=== PATIENT | female | born 1960 | race Caucasian/White ===

== ENCOUNTER → 2018-08-15 | Outpatient (CLI) | payer OTHER ==
[~2018-08-15] MED LIST: BENZ200C15 PO
== END ==
LOC: LAB 15:46
PROVIDERS: ATTEND Nurse Practitioner Primary Care
DX: Z11.59 Encounter for screening for other viral diseases (principal)
CPT/HCPCS: 36415; 86803

== ENCOUNTER 2018-09-05 20:27 | Emergency (ER) | payer OTHER ==
--- NOTE | 2018-09-05 20:31 | ER Report ---
History and Physical Time Seen By MD: 20:31 HPI/ROS CHIEF COMPLAINT: Chest pain HISTORY OF PRESENT ILLNESS: Patient is a 57-year-old female here with complaints of midsternal chest pain which started approximately 45 minutes prior to arrival. Patient was afebrile, hemodynamically stable at time of evaluation. EKG showed no acute ischemic changes or arrhythmias. Denies prior history of coronary artery disease. REVIEW OF SYSTEMS: Constitutional: No fever, no chills. Eyes: No discharge. ENT: No sore throat. Cardiovascular: + Midsternal chest pain, no palpitations. Respiratory: No cough, no shortness of breath. Gastrointestinal: No abdominal pain, no vomiting. Genitourinary: No hematuria. Musculoskeletal: No back pain. Skin: No rashes. Neurological: No headache. Allergies: Coded Allergies: No Known Drug Allergies (Unverified , 08/15/18) Home Meds Active Scripts Benzonatate (BENZONATATE) 200 Mg Capsule, 1 CAP PO TID PRN for COUGH, #15 CAP 0 Refills Prov:JUAN DIEGO MELÉNDEZ DNP, [employer] 08/15/18 Smoking Status: Current: Every Day Smoker Constitutional Vital Sign - Last 24 Hours 09/05/18 09/05/18 09/05/18 09/05/18 20:30 20:30 20:40 20:57 Temp 97.2 Pulse 93 90 Resp 20 20 B/P (MAP) 156/92 156/92 (113) Pulse Ox 92 91 O2 Delivery Room Air O2 Flow Rate 1.0 09/05/18 09/05/18 09/05/18 09/05/18 21:00 21:15 21:20 21:30 Pulse 75 Resp 11 B/P (MAP) 126/85 (99) 120/73 (89) 127/77 (94) Pulse Ox 96 09/05/18 09/05/18 09/05/18 09/05/18 21:45 21:50 22:00 22:15 Pulse 71 Resp 10 B/P (MAP) 121/82 (95) 137/86 (103) 138/86 (103) Pulse Ox 97 09/05/18 09/05/18 09/05/18 09/05/18 22:20 22:30 22:45 22:50 Pulse 78 65 Resp 21 7 B/P (MAP) 129/103 (112) 131/83 (99) Pulse Ox 98 95 09/05/18 09/05/18 23:00 23:15 B/P (MAP) 138/92 (107) 139/79 (99) Intake and Output 09/05/18 09/05/18 09/06/18 14:59 22:59 06:59 Intake Total 1000 ml Balance 1000 ml Physical Exam General Appearance: The patient is alert, has no immediate need for airway protection and no signs of toxicity. No acute distress Eyes: Pupils equal and round no pallor or injection. ENT, Mouth: Mucous membranes are moist. Respiratory: There are no retractions, lungs are clear to auscultation. Cardiovascular: Regular rate and rhythm. Gastrointestinal: Abdomen is soft and non tender, no masses, bowel sounds normal. Neurological: No focal neurological findings Skin: Warm and dry, no rashes. Musculoskeletal: Neck is supple non tender. Extremities are nontender, nonswollen and have full range of motion. DIFFERENTIAL DIAGNOSIS: After history and physical exam differential diagnosis was considered for chest pain including but not limited to myocardial ischemia, pericarditis pulmonary embolus, chest wall pain, pleural inflammation and pulmonary infectious causes. Medical Decision Making Data Points Result Diagram: 09/05/18203509/05/182035 Laboratory Hematology Test 09/05/18 20:36 09/05/18 20:40 09/05/18 22:48 Red Blood Count 4.81 M/uL (4.17-5.56) Mean Corpuscular Volume 94.2 fL (80.0-96.0) Mean Corpuscular Hemoglobin 32.4 pg (26.0-33.0) Mean Corpuscular Hemoglobin Concent 34.4 g/dL (32.0-36.0) Red Cell Distribution Width 13.1 % (11.5-14.5) Mean Platelet Volume 8.0 fL (7.2-11.1) Neutrophils (%) (Auto) 60.1 % (39.4-72.5) Lymphocytes (%) (Auto) 30.2 % (17.6-49.6) Monocytes (%) (Auto) 6.0 % (4.1-12.4) Eosinophils (%) (Auto) 3.1 % (0.4-6.7) Basophils (%) (Auto) 0.6 % (0.3-1.4) Nucleated RBC Relative Count (auto) 0.0 /100WBC Neutrophils # (Auto) 4.7 K/uL (2.0-7.4) Lymphocytes # (Auto) 2.4 K/uL (1.3-3.6) Monocytes # (Auto) 0.5 K/uL (0.3-1.0) Eosinophils # (Auto) 0.2 K/uL (0.0-0.5) Basophils # (Auto) 0.0 K/uL (0.0-0.1) Nucleated RBC Absolute Count (auto) 0.00 K/uL Prothrombin Time 12.4 seconds (12.0-14.4) Prothromb Time International Ratio 0.93 Activated Partial Thromboplast Time 28 seconds (23-35) Sodium Level 141 mmol/L (137-145) Potassium Level 3.5 mmol/L (3.5-5.0) Chloride Level 107 mmol/L (98-107) Carbon Dioxide Level 26 mmol/L (22-31) Blood Urea Nitrogen 16 mg/dl (7-18) Creatinine 0.90 mg/dl (0.52-1.04) Glomerular Filtration Rate Calc > 60.0 Random Glucose 111 mg/dl (75-110) Calcium Level 8.8 mg/dl (8.4-10.2) Total Bilirubin 0.2 mg/dl (0.2-1.3) Aspartate Amino Transf (AST/SGOT) 26 U/L (0-35) Alanine Aminotransferase (ALT/SGPT) 24 U/L (0-56) Alkaline Phosphatase 74 U/L (0-126) B-Type Natriuretic Peptide < 5 pg/ml (0-100) Total Protein 6.1 g/dl (6.3-8.2) Albumin 3.7 g/dl (3.5-5.0) Influenza Virus Type A (PCR) Negative (NEGATIVE) Influenza Virus Type B (PCR) Negative (NEGATIVE) Troponin I < 0.012 ng/ml Chemistry Test 09/05/18 20:36 09/05/18 20:40 09/05/18 22:48 White Blood Count 7.8 k/uL (4.5-11.0) Red Blood Count 4.81 M/uL (4.17-5.56) Hemoglobin 15.6 g/dL (12.0-16.0) Hematocrit 45.3 % (34.0-47.0) Mean Corpuscular Volume 94.2 fL (80.0-96.0) Mean Corpuscular Hemoglobin 32.4 pg (26.0-33.0) Mean Corpuscular Hemoglobin Concent 34.4 g/dL (32.0-36.0) Red Cell Distribution Width 13.1 % (11.5-14.5) Platelet Count 336 K/uL (150-450) Mean Platelet Volume 8.0 fL (7.2-11.1) Neutrophils (%) (Auto) 60.1 % (39.4-72.5) Lymphocytes (%) (Auto) 30.2 % (17.6-49.6) Monocytes (%) (Auto) 6.0 % (4.1-12.4) Eosinophils (%) (Auto) 3.1 % (0.4-6.7) Basophils (%) (Auto) 0.6 % (0.3-1.4) Nucleated RBC Relative Count (auto) 0.0 /100WBC Neutrophils # (Auto) 4.7 K/uL (2.0-7.4) Lymphocytes # (Auto) 2.4 K/uL (1.3-3.6) Monocytes # (Auto) 0.5 K/uL (0.3-1.0) Eosinophils # (Auto) 0.2 K/uL (0.0-0.5) Basophils # (Auto) 0.0 K/uL (0.0-0.1) Nucleated RBC Absolute Count (auto) 0.00 K/uL Prothrombin Time 12.4 seconds (12.0-14.4) Prothromb Time International Ratio 0.93 Activated Partial Thromboplast Time 28 seconds (23-35) Glomerular Filtration Rate Calc > 60.0 Calcium Level 8.8 mg/dl (8.4-10.2) Total Bilirubin 0.2 mg/dl (0.2-1.3) Aspartate Amino Transf (AST/SGOT) 26 U/L (0-35) Alanine Aminotransferase (ALT/SGPT) 24 U/L (0-56) Alkaline Phosphatase 74 U/L (0-126) B-Type Natriuretic Peptide < 5 pg/ml (0-100) Total Protein 6.1 g/dl (6.3-8.2) Albumin 3.7 g/dl (3.5-5.0) Influenza Virus Type A (PCR) Negative (NEGATIVE) Influenza Virus Type B (PCR) Negative (NEGATIVE) Troponin I < 0.012 ng/ml Coagulation Test 09/05/18 20:36 Prothrombin Time 12.4 seconds Prothromb Time International Ratio 0.93 Activated Partial Thromboplast Time 28 seconds EKG/Imaging EKG Interpretation PATIENT NAME: AMA CALVIN : [id number] MR: [id number] V: [id number] EXAM DATE: ORDERING PHYSICIAN: ASHLY PROCTOR TECHNOLOGIST: GIORGIW Test Reason : CHEST PAIN Blood Pressure : / mmHG Vent. Rate : 089 BPM Atrial Rate : 089 BPM P-R Int : 164 ms QRS Dur : 086 ms QT Int : 370 ms P-R-T Axes : 077 063 071 degrees QTc Int : 450 ms Normal sinus rhythm Normal ECG No previous ECGs available Confirmed by Jered Mobley ([id number]) on 09/05/2018 10:20:47 PM Referred By: Confirmed By:Jered [facility] PATIENT NAME: Ama Calvin : 1960 MR: [id number] V: [id number] EXAM DATE: [id number] ORDERING PHYSICIAN: ASHLY PROCTOR TECHNOLOGIST: Location: [facility] Patient: Ama Calvin : 1960 Visit/Account:[id number] Date of Sevice: 09/05/2018 CHEST SINGLE AP 09/05/2018 20:36 hours. HISTORY: Chest pain. COMPARISON: None. TECHNIQUE: Portable AP view of the chest. FINDINGS: Tubes/lines/hardware: There are external chest leads. Pulmonary/pleura: Lungs are clear. There is no pneumothorax or pleural effusion. Cardiomediastinal: Cardiac and mediastinal silhouettes are within normal limits. Bones/soft tissues: No acute osseous abnormality. The visible abdomen is normal. IMPRESSION: 1. No acute cardiopulmonary process. ED Course/Re-evaluation ED Course Patient is a 57-year-old female here with complaints of midsternal chest pain which started approximately 1 hour prior to arrival. Pain was localized, nonradiating with no shortness breath. Patient denies prior history of coronary artery disease. EKG showed no ischemic changes. Two set troponins were negative. Chest x-ray was clear. Labs were unremarkable. Patient was given fluid bolus, aspirin, nitroglycerin, fentanyl for symptom management. Return precautions pr ovided. Close PCP follow-up recommended. Decision to Disposition Date: Sep 05, 2018 Decision to Disposition Time: 23:16 Depart Departure Latest Vital Signs Vital Signs Date Time Temp Pulse Resp B/P (MAP) Pulse Ox O2 Delivery O2 Flow Rate FiO2 09/05/18 23:15 139/79 (99) 09/05/18 22:50 65 7 95 09/05/18 20:40 1.0 09/05/18 20:30 97.2 Room Air Impression: Primary Impression: Chest pain Condition: Improved Disposition: HOME OR SELF-CARE Referrals: JUAN DIEGO MELÉNDEZ DNP, [employer] MACHINE [employer]ENDER-BC (PCP) Patient Instructions: Chest Pain (ED) Additional Instructions: Please follow-up with your primary care provider in the next 24-48 hours. Please return promptly if you develop recurrent episodes of chest pain, trouble breathing, fevers or chills. ASHLY PROCTOR DO Sep 05, 2018 20:31
[2018-09-05] MEDS ORDERED: NS(*) 0.9% 1000 ML BAG 1,000 ML IV ONE (20:36)
[2018-09-05] MEDS ORDERED: ASPIRIN 81 MG CHEW PO ONE (20:40)
[2018-09-05] MEDS ORDERED: NITROGLYCERIN 0.4 MG SUBL SL SCH (20:40)
[2018-09-05 20:46] LABS: PLATELET COUNT, AUTOMATED 336 K/uL (150-450)
[2018-09-05 20:59] LABS: INR 0.93
[2018-09-05] MEDS ORDERED: fentaNYL CITR 100 MCG/2 ML AMP IVP ONE (21:20)
--- NOTE | 2018-09-05 21:42 | RADIOLOGY IMAGING REPORT ---
FACILITY: [facility] [place] PATIENT NAME: Ama Espinoza : 1960 MR: [id number] V: [id number] EXAM DATE: ORDERING PHYSICIAN: ASHLY PROCTOR TECHNOLOGIST: Location: [facility] Patient: Ama Espinoza : 1960 Visit/Account:[id number] Date of Sevice: 09/05/2018 CHEST SINGLE AP 09/05/2018 20:36 hours. HISTORY: Chest pain. COMPARISON: None. TECHNIQUE: Portable AP view of the chest. FINDINGS: Tubes/lines/hardware: There are external chest leads. Pulmonary/pleura: Lungs are clear. There is no pneumothorax or pleural effusion. Cardiomediastinal: Cardiac and mediastinal silhouettes are within normal limits. Bones/soft tissues: No acute osseous abnormality. The visible abdomen is normal. IMPRESSION: 1. No acute cardiopulmonary process. Report Dictated By: Jayne Gray at 09/05/2018 9:37 PM Report E-Signed By: Jayne Gray at 09/05/2018 9:38 PM WSN:[id number]
--- NOTE | 2018-09-05 22:17 | EKG ---
FACILITY: [facility] [place] PATIENT NAME: RAMANDEEP CALVIN : [id number] MR: [id number] V: [id number] EXAM DATE: ORDERING PHYSICIAN: ASHLY PROCTOR TECHNOLOGIST: ELI Test Reason : CHEST PAIN Blood Pressure : / mmHG Vent. Rate : 089 BPM Atrial Rate : 089 BPM P-R Int : 164 ms QRS Dur : 086 ms QT Int : 370 ms P-R-T Axes : 077 063 071 degrees QTc Int : 450 ms Normal sinus rhythm Normal ECG No previous ECGs available Confirmed by Jered Mobley ([id number]) on 09/05/2018 10:20:47 PM Referred By: Confirmed By:Jered Rivera
[2018-09-05 23:15] VITALS: BP 139/79
[2018-09-06] MEDS ORDERED: CITA-145 PO (09:51)
== END 2018-09-05 23:33 | disposition home or self-care (01) ==
LOC: ER 20:41
DX: R07.9 Chest pain, unspecified (principal); F17.200 Nicotine dependence, unspecified, uncomplicated
CPT/HCPCS: 71045; 83880; 84484; 85025; 85610; 85730; 87502; 93005; 96361; 96374; 99284; J3010; J7030; 82040; 82247; 82310; 82374; 82435; 82565; 82947; 84075; 84132; 84155; 84295; 84450; 84460; 84520

== ENCOUNTER → 2018-09-06 | Outpatient (CLI) | payer OTHER ==
[~2018-09-06] MED LIST changes: +CITA-145 PO
--- NOTE | 2018-09-06 11:48 | EKG ---
FACILITY: [facility] PATIENT NAME: RAMANDEEP CALVIN : [id number] MR: [id number] V: [id number] EXAM DATE: ORDERING PHYSICIAN: HELEN BUSTOS TECHNOLOGIST: JANA Test Reason : Blood Pressure : / mmHG Vent. Rate : 062 BPM Atrial Rate : 062 BPM P-R Int : 162 ms QRS Dur : 078 ms QT Int : 422 ms P-R-T Axes : 074 059 068 degrees QTc Int : 428 ms Normal sinus rhythm Normal ECG When compared with ECG of 05-SEP-2018 20:30, No significant change was found Referred By: CANDIS Confirmed By:
== END ==
LOC: RESP 10:13
PROVIDERS: ATTEND Emergency Medicine
DX: R07.9 Chest pain, unspecified (principal)
CPT/HCPCS: 36415; 82465; 83036; 83718; 84443; 84478; 84484; 85379; 86140

== ENCOUNTER → 2018-10-09 | Outpatient (CLI) | payer OTHER ==
--- NOTE | 2018-10-09 14:15 | RADIOLOGY IMAGING REPORT ---
FACILITY: [facility] PATIENT NAME: Ama Espinoza : 1960 MR: [id number] V: [id number] EXAM DATE: ORDERING PHYSICIAN: HELEN BUSTOS TECHNOLOGIST: Location: Patient: Ama Espinoza : 1960 Visit/Account:[id number] Date of Sevice: 10/09/2018 EXAMINATION: Single Isotope SPECT Imaging with Exercise and Gated SPECT Imaging DATE OF EXAMINATION: October 09, 2018 DATE OF INTERPRETATION: October 09, 2018 REQUESTING PHYSICIAN: HELEN BUSTOS INDICATION: The patient is a 57-year-old female evaluated for CAD. PROCEDURE: After informed consent the patient received an intravenous injection of 11.2 mCi of Tc-9 9m sestamibi followed at the appropriate time interval by rest imaging. The patient then exercised a ccording to the standard Antoine protocol for 6 minutes minutes achieving 7 METS. Resting heart rate w as 59 bpm with a peak heart rate of 139 bpm which is 85 % of maximal predicted heart rate for age. Blood pressure at rest was 148 / 82; blood pressure during exercise was 204 / 74. There was no repor shaw chest pain during exercise. Exercise was discontinued because of completing the protocol. Basel ine EKG demonstrates normal sinus rhythm. There were no diagnostic EKG changes of ischemia at peak e xercise. Approximately one minute and 30 seconds prior to the termination of exercise, the patient r eceived an intravenous injection of 27.5 mCi of Tc-99m sestamibi followed by stress imaging. RAW DATA: Examination of the summed raw data revealed a good quality study. MYOCARDIAL PERFUSION: The tomographic images demonstrate normal perfusion both at rest and at stress . There is some breast attenuation artifact and prone imaging was done.. GATED IMAGES: The gated images demonstrate a normal if not hyperdynamic ejection fraction at greater than 70% with normal wall motion. IMPRESSION: 1. Baseline EKG shows normal sinus rhythm and there are no significant changes during stress. 2. Normal myocardial perfusion scan. 3. Normal if not hyperdynamic LV systolic function; LVEF greater than 70%. 4. Based on the results of this exam, the patient appears to be at low risk for future cardiovascular events. Report Dictated By: Reagan Montalvo MD at 10/09/2018 2:09 PM Report E-Signed By: Reagan Montalvo MD at 10/09/2018 2:11 PM WSN:[id number]
--- NOTE | 2018-10-10 13:39 | RT STRESS TEST REPORT ---
FACILITY: [facility] PATIENT NAME: RAMANDEEP CALVIN : [id number] MR: [id number] V: [id number] EXAM DATE: ORDERING PHYSICIAN: HELEN BUSTOS TECHNOLOGIST: Cindy Acquisition Time: 2018-10-09 09:41:32 Total Exercise Time: 00:05:58 Test Indications: Chest Discomfort Medications: SEE NUCLEAR MED SHEET Protocol: NEDA 2 Max HR: 139 BPM 85% of Pred: 163 BPM Max BP: 204/074 mmHG Max Work Load: 7.0 METS Impression No EKG changes to suggest ischemia Nuclear medicine report to follow Confirmed by DEJAN GONZALEZ ([id number]) on 10/10/2018 1:38:32 PM Referred By: Overread By: DEJAN GONZALEZ
== END ==
LOC: RESP 00:24
PROVIDERS: ATTEND Emergency Medicine
DX: R07.9 Chest pain, unspecified (principal)
CPT/HCPCS: 78452; 93017; A9500